=== PATIENT | female | born 1940 | race Asian ===

== ENCOUNTER 2020-10-16 15:40 | Inpatient (IN) | payer OTHER ==
[2020-10-16] MEDS ORDERED: ASPIRIN 81 MG CHEWABLE TABLETS PO ONE (16:13)
[2020-10-16 17:33] LABS: BASO % 1.7 % (0-2.0); HEMATOCRIT 32.2 % (32.4-45.2); LYMPH % 14.9 % (8-40); MCHC 34.2 g/dl (32.0-36.0); MEAN CELL VOLUME 78.9 fl (80-96); MEAN PLT VOLUME 10.9 fl (7.5-11.1); MONO % 8.6 % (3.8-10.2); NEUT % 72.8 % (42.8-82.8); PLATELET COUNT 156 K/MM3 (134-434); RBC 4.09 M/mm3 (3.60-5.2); RDW 19.6 % (11.6-15.6); RETICULOCYTES 0.93 % (0.5-1.5); WHITE BLOOD COUNT 3.7 K/mm3 (4.0-10.0)
[2020-10-16 17:38] LABS: INR 1.14 (0.83-1.09)
[2020-10-16 17:41] LABS: ACTIVATED PTT 33.7 SECONDS (25.2-36.5)
[2020-10-16 17:47] LABS: ALBUMIN 2.9 g/dl (3.4-5.0); CALCIUM 9.5 mg/dL (8.5-10.1)
[2020-10-16 17:48] LABS: BLOOD UREA NITROGEN 21.2 mg/dL (7-18); MAGNESIUM 2.6 mg/dL (1.8-2.4)
[2020-10-16 17:50] LABS: CREATININE 1.4 mg/dL (0.55-1.3); PHOSPHOROUS 4.1 mg/dL (2.5-4.9)
[2020-10-16] MEDS ORDERED: SODIUM CHLORIDE 0.9% 500 ML INFUS.BAG IV ONE (17:52)
[2020-10-16 17:56] LABS: TOT PROT 8.3 g/dl (6.4-8.2)
[2020-10-16 18:17] LABS: POTASSIUM 8.9 mmol/L (3.5-5.1)
[2020-10-16 18:18] LABS: BILIRUBIN,TOTAL 15.6 mg/dL (0.2-1)
[2020-10-16 20:20] LABS: EPI CELLS 7 /uL (0-25.1); HYALINE CASTS 0 /uL (0-3.1); URINE APPEARANCE CLOUDY; URINE BACTERIA >9,000 /uL (0-1359); URINE BILIRUBIN 3+ (NEGATIVE); URINE COLOR DK YELLOW; URINE GLUCOSE (UA) NEGATIVE (NEGATIVE); URINE KETONE NEGATIVE (NEGATIVE); URINE LEUK ESTERASE 1+ (NEGATIVE); URINE NITRITE POSITIVE (NEGATIVE); URINE PROTEIN 1+ (NEGATIVE); URINE RBC 40 /uL (0-23.9); URINE UROBILINOGEN 0.2 mg/dL (0.2-1.0); URINE WBC 51 /uL (0-25.8)
[2020-10-16] MEDS ORDERED: LABETALOL HCL 200 MG TABLET (FP) PO ONE (21:18)
[2020-10-16] MEDS ORDERED: LOSARTAN POTASSIUM 50 MG TABLET PO ONE (21:18)
[2020-10-16] MEDS ORDERED: LABETALOL HCL 100 MG TABLET (FP) ONE (21:29)
[2020-10-16] MEDS ORDERED: LOSARTAN POTASSIUM 50 MG TABLET ONE (21:29)
[2020-10-16] MEDS ORDERED: CEFTRIAXONE 1 GM in DEXTROSE 5%-WATER - 100 ML IVPB ONE (21:32)
[2020-10-16 21:48] LABS: CHLORIDE 105 mmol/L (98-107); POTASSIUM 3.8 mmol/L (3.5-5.1); SODIUM 136 mmol/L (136-145)
[2020-10-16 21:50] LABS: CALCIUM 8.7 mg/dL (8.5-10.1)
[2020-10-16 21:51] LABS: ALBUMIN 2.6 g/dl (3.4-5.0); ANION GAP 8 MMOL/L (8-16); BLOOD UREA NITROGEN 20.1 mg/dL (7-18); CO2 22 mmol/L (21-32); GLUCOSE,RANDOM 115 mg/dL (74-106); MAGNESIUM 2.2 mg/dL (1.8-2.4)
[2020-10-16 21:52] LABS: LIPASE 354 U/L (73-393)
[2020-10-16 21:53] LABS: BILIRUBIN,DIRECT 10.6 mg/dL (0.0-0.2)
[2020-10-16 21:54] LABS: CREATININE 0.8 mg/dL (0.55-1.3); SGOT/AST 182 U/L (15-37); SGPT/ALT 118 U/L (13-61)
[2020-10-16 21:55] LABS: BILIRUBIN,TOTAL 12.3 mg/dL (0.2-1); TOT PROT 6.7 g/dl (6.4-8.2)
[2020-10-16 21:57] LABS: LDH 283 U/L (84-246)
[2020-10-16 22:05] LABS: ALK PHOS > 1000 U/L (45-117)
[2020-10-16] MEDS ORDERED: CEFTRIAXONE 1 GM/50 ML BAG ONE (22:16)
[2020-10-17 07:03] LABS: BASO % 1.4 % (0-2.0); HEMATOCRIT 29.1 % (32.4-45.2); HEMOGLOBIN 9.9 GM/dL (10.7-15.3); LYMPH % 12.1 % (8-40); MCH 26.7 pg (25.7-33.7); MCHC 33.8 g/dl (32.0-36.0); MEAN CELL VOLUME 78.9 fl (80-96); MEAN PLT VOLUME 10.6 fl (7.5-11.1); MONO % 10.4 % (3.8-10.2); NEUT % 72.1 % (42.8-82.8); PLATELET COUNT 127 K/MM3 (134-434); RBC 3.69 M/mm3 (3.60-5.2); RDW 19.3 % (11.6-15.6); WHITE BLOOD COUNT 3.8 K/mm3 (4.0-10.0)
[2020-10-17] MEDS: LEVOTHYROXINE NA 75 MCG TABLET (FP) PO SCH (07:39)
[2020-10-17 07:41] LABS: POTASSIUM 3.8 mmol/L (3.5-5.1)
[2020-10-17 07:51] LABS: CALCIUM 8.8 mg/dL (8.5-10.1)
[2020-10-17 07:52] LABS: ALBUMIN 2.6 g/dl (3.4-5.0)
[2020-10-17 07:54] LABS: CREATININE 0.8 mg/dL (0.55-1.3)
[2020-10-17 07:55] LABS: BILIRUBIN,TOTAL 12.1 mg/dL (0.2-1); PHOSPHOROUS 2.7 mg/dL (2.5-4.9); TOT PROT 6.5 g/dl (6.4-8.2)
[2020-10-17] MEDS ORDERED: CEFTRIAXONE 1 GM/50 ML BAG ONE (09:09)
[2020-10-17] MEDS ORDERED: MULTIVITAMINS (DAILY MVI) TABLET (FP) ONE (09:09)
[2020-10-17] MEDS ORDERED: ASPIRIN 81 MG CHEWABLE TABLETS ONE (09:09)
[2020-10-17 09:41] LABS: PLATELET ESTIMATE DECREASED
[2020-10-17] MEDS: MULTIVITAMINS (DAILY MVI) TABLET (FP) PO SCH (10:40)
[2020-10-17] MEDS: ASPIRIN 81 MG CHEWABLE TABLETS PO SCH (10:40)
[2020-10-17] MEDS: CEFTRIAXONE 1 GM in DEXTROSE 5%-WATER - 50 ML IVPB SCH (10:40)
[2020-10-17] MEDS ORDERED: LABETALOL HCL 200 MG TABLET (FP) PO SCH (11:15)
[2020-10-17] MEDS ORDERED: LABETALOL HCL 100 MG TABLET (FP) ONE ×2 (11:26→18:21)
[2020-10-17] MEDS ORDERED: LOSARTAN POTASSIUM 50 MG TABLET PO SCH (11:30)
[2020-10-17 15:13] VITALS: BMI 24.2
[2020-10-17] MEDS: LABETALOL HCL 200 MG TABLET (FP) PO SCH (18:23)
[2020-10-17] MEDS: LOSARTAN POTASSIUM 50 MG TABLET PO SCH (21:57)
[2020-10-17] MEDS: HEPARIN NA (PORCINE) 5,000 UNITS/ML 1ML VIAL SQ SCH (21:57)
[2020-10-18] MEDS ORDERED: LABETALOL HCL 100 MG TABLET (FP) ONE ×2 (05:12→16:54)
[2020-10-18] MEDS: LABETALOL HCL 200 MG TABLET (FP) PO SCH ×2 (05:18→17:36)
[2020-10-18] MEDS: HEPARIN NA (PORCINE) 5,000 UNITS/ML 1ML VIAL SQ SCH ×2 (05:18→14:03)
[2020-10-18] MEDS: LEVOTHYROXINE NA 75 MCG TABLET (FP) PO SCH (06:00)
[2020-10-18 09:24] LABS: BASO % 1.9 % (0-2.0); EOS % 2.4 % (0-4.5); HEMATOCRIT 29.7 % (32.4-45.2); HEMOGLOBIN 10.1 GM/dL (10.7-15.3); LYMPH % 16.3 % (8-40); MCH 26.7 pg (25.7-33.7); MCHC 34.2 g/dl (32.0-36.0); MEAN CELL VOLUME 78.2 fl (80-96); MONO % 9.4 % (3.8-10.2); PLATELET COUNT 130 K/MM3 (134-434); RDW 19.9 % (11.6-15.6); WHITE BLOOD COUNT 3.5 K/mm3 (4.0-10.0)
[2020-10-18 10:12] LABS: CARCINOEMBRYONIC ANTIGEN 30.9 ng/mL (0.0-4.7)
[2020-10-18] MEDS ORDERED: cefTRIAXone SODIUM 1 GM VIAL ONE (10:26)
[2020-10-18] MEDS ORDERED: DEXTROSE 5%-WATER - 50 ML IVPB ONE (10:26)
[2020-10-18 10:28] LABS: ALBUMIN 2.5 g/dl (3.4-5.0); BLOOD UREA NITROGEN 13.1 mg/dL (7-18); CALCIUM 9.1 mg/dL (8.5-10.1)
[2020-10-18 10:31] LABS: BILIRUBIN,DIRECT 10.7 mg/dL (0.0-0.2); CREATININE 0.8 mg/dL (0.55-1.3)
[2020-10-18 10:33] LABS: BILIRUBIN,TOTAL 12.7 mg/dL (0.2-1); TOT PROT 6.3 g/dl (6.4-8.2)
[2020-10-18] MEDS: CEFTRIAXONE 1 GM in DEXTROSE 5%-WATER - 50 ML IVPB SCH (10:34)
[2020-10-18] MEDS: ASPIRIN 81 MG CHEWABLE TABLETS PO SCH (10:34)
[2020-10-18] MEDS: LOSARTAN POTASSIUM 50 MG TABLET PO SCH (10:35)
[2020-10-18] MEDS: MULTIVITAMINS (DAILY MVI) TABLET (FP) PO SCH (10:35)
[2020-10-18 11:15] LABS: POTASSIUM 3.6 mmol/L (3.5-5.1)
[2020-10-18 21:10] VITALS: BP 137/70; PULSE 62; TEMP 98.5
== END 2020-10-18 21:09 | disposition short-term general hospital (02) | DRG 436 ==
LOC: JER 15:40 → JERBED 21:29 → J6S 10-17 12:36
PROVIDERS: ADMIT Internal Medicine; ATTEND Student in an Organized Health Care Education/Training Program
DX: C25.9 Malignant neoplasm of pancreas, unspecified (principal); R17 Unspecified jaundice; N39.0 Urinary tract infection, site not specified; D61.818 Other pancytopenia; I10 Essential (primary) hypertension; R73.03 Prediabetes; I25.10 Atherosclerotic heart disease of native coronary artery without angina pectoris; Z98.41 Cataract extraction status, right eye; Z98.42 Cataract extraction status, left eye
CPT/HCPCS: 36415; 71045-TC-FY; 74177-TC; 76705-TC; 80048; 80053; 80074; 80076; 80307; 81003; 82140; 82248; 82378; 83010; 83036; 83615; 83690; 83735; 84100; 84443; 85025; 85045; 85379; 85384; 85610; 85730; 86301; 87086; 87186; 93005; 93010; 97116-GP; 97162-GP; 99285-25; C9803; J1644; Q9967; U0003

== ENCOUNTER 2020-12-28 22:03 | Emergency (ER) | payer OTHER ==
[2020-12-28 22:34] VITALS: BP 84/65; PULSE 92; TEMP 97.4; BMI 30.2
[2020-12-28 23:12] LABS: BASO % 0.9 % (0-2.0); EOS % 1.2 % (0-4.5); HEMATOCRIT 30.4 % (32.4-45.2); HEMOGLOBIN 9.8 GM/dL (10.7-15.3); LYMPH % 23.3 % (8-40); MCH 28.8 pg (25.7-33.7); MCHC 32.1 g/dl (32.0-36.0); MEAN CELL VOLUME 89.7 fl (80-96); MEAN PLT VOLUME 9.7 fl (7.5-11.1); MONO % 6.1 % (3.8-10.2); NEUT % 68.5 % (42.8-82.8); PLATELET COUNT 88 K/MM3 (134-434); RBC 3.39 M/mm3 (3.60-5.2); RDW 21.5 % (11.6-15.6); WHITE BLOOD COUNT 4.9 K/mm3 (4.0-10.0)
[2020-12-28 23:23] LABS: ACTIVATED PTT 46.9 SECONDS (25.2-36.5)
[2020-12-28 23:31] LABS: ALBUMIN 2.5 g/dl (3.4-5.0); BLOOD UREA NITROGEN 14.5 mg/dL (7-18); MAGNESIUM 1.9 mg/dL (1.8-2.4)
[2020-12-28 23:34] LABS: CREATININE 0.7 mg/dL (0.55-1.3); PHOSPHOROUS 2.6 mg/dL (2.5-4.9)
[2020-12-28 23:35] LABS: BILIRUBIN,TOTAL 0.7 mg/dL (0.2-1); TOT PROT 5.5 g/dl (6.4-8.2)
[2020-12-28 23:40] LABS: INR 1.83 (0.83-1.09); PROTHROMBIN TIME (PATIENT) 22.1 SEC (9.7-13.0)
[2020-12-28 23:51] LABS: ANISOCYTOSIS 2+; MACROCYTOSIS 0; OVALOCYTE 1+; PLATELET ESTIMATE DECREASED
== END 2020-12-29 01:28 | disposition short-term general hospital (02) ==
LOC: JER 22:03
DX: S12.191A Other nondisplaced fracture of second cervical vertebra, initial encounter for closed fracture (principal); S32.511A Fracture of superior rim of right pubis, initial encounter for closed fracture; S32.591A Other specified fracture of right pubis, initial encounter for closed fracture; S32.301A Unspecified fracture of right ilium, initial encounter for closed fracture
CPT/HCPCS: 36415; 36430; 70450-TC; 71045-TC-FY; 72125-TC; 72192-TC; 80053; 82550; 83735; 83880; 84100; 84484; 85025; 85610; 85730; 86850; 86900; 86901; 86922; 93005; 93010; 99285-25; C9803; P9058; U0003; U0005